=== PATIENT | female | born 1940 | race Caucasian/White ===

== ENCOUNTER 2020-08-05 11:52 | Outpatient (RCR) | payer MEDICARE, OTHER, SELFPAY | END 2020-08-05 23:59 | LOC: IMMUN 11:52 | PROVIDERS: PCP Family Medicine; Referring Provider Family Medicine; Visit Provider Family Medicine | DX: Z23 Encounter for immunization (principal) | CPT/HCPCS: 0011A; 0012A; 91301 ==